=== PATIENT | female | born 1990 | race American Indian/Alaskan Native ===

== ENCOUNTER 2022-06-20 14:55 | Emergency (ER) | payer MEDICAID, OTHER ==
[2022-06-20 15:55] VITALS: BP 130/78
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
== END 2022-06-20 16:20 | disposition home or self-care (01) ==
LOC: ED 14:55
DX: M25.511 Pain in right shoulder (principal); M25.512 Pain in left shoulder; M25.532 Pain in left wrist; M25.531 Pain in right wrist; V89.2XXA Person injured in unspecified motor-vehicle accident, traffic, initial encounter; Y93.89 Activity, other specified; Y92.89 Other specified places as the place of occurrence of the external cause; Y99.8 Other external cause status
CPT/HCPCS: 99282